=== PATIENT | male | born 1980 ===

== ENCOUNTER 2019-09-19 18:47 | Emergency (ER) | payer BC, OTHER ==
[2019-09-19 19:06] VITALS: BP 140/90
--- NOTE | 2019-09-19 19:13 | UC ---
Skin Complaint HPI - HPI Summary HPI Summary: 39-year-old male presents with 2 tick bites. States earlier this morning he discovered an embedded tick to his right lower abdomen and mid lower back. He removed them in their entirety right away. He is unsure how long they were attached and believes that they weren't engorged. Denies fever, chills, fatigue , rash, flulike symptoms, myalgias, joint pain or swelling. - History of Current Complaint Chief Complaint: UCBiteInjury Time Seen by Provider: 09/19/19 19:00 Stated Complaint: TICK BITE Hx Obtained From: Patient Pain Intensity: 0 - Allergy/Home Medications Allergies/Adverse Reactions: Allergies Allergy/AdvReac Type Severity Reaction Status Date / Time No Known Allergies Allergy Verified 09/19/19 19:00 Home Medications: Home Medications NK [No Home Medications Reported] 09/19/19 [History Confirmed 09/19/19] PMH/Surg Hx/FS Hx/Imm Hx Previously Healthy: Yes - Denies significant PMH - Surgical History Surgical History: Yes Surgery Procedure, Year, and Place: deviated septum 2011 - Family History Known Family History: Positive: Non-Contributory - Social History Occupation: Employed Full-time Lives: With Family Alcohol Use: Weekly Substance Use Type: None Smoking Status (MU): Never Smoked Tobacco Review of Systems All Other Systems Reviewed And Are Negative: Yes Constitutional: Negative: Fever, Chills Skin: Positive: Other - See HPI. Negative: Rash Respiratory: Positive: Negative Cardiovascular: Positive: Negative Gastrointestinal: Positive: Negative Genitourinary: Positive: Negative Musculoskeletal: Negative: Arthralgia, Myalgia Neurological: Positive: Negative Is Patient Immunocompromised?: No Physical Exam - Summary Physical Exam Summary: GENERAL APPEARANCE: Well developed, well nourished, alert and cooperative, and appears to be in no acute distress. CARDIAC: Normal S1 and S2. No S3, S4 or murmurs. Rhythm is regular. There is no peripheral edema, cyanosis or pallor. Extremities are warm and well perfused. Capillary refill is less than 2 seconds. Peripheral pulses intact. LUNGS: Clear to auscultation without rales, rhonchi, wheezing or diminished breath sounds. ABDOMEN: Positive bowel sounds. Soft, nondistended, nontender. No guarding or rebound. No masses or hepatosplenomegally. MUSKULOSKELETAL: ROM intact to all extremities. No joint erythema or tenderness. Normal muscular development. Normal gait. SKIN: Skin normal color, texture and turgor. 2 small circular areas of erythema <1 cm in diameter to the right lower abdomen and mid lumbar back. Triage Information Reviewed: Yes Vital Signs: Initial Vital Signs Temp 99.0 F 09/19/19 19:00 Pulse 91 09/19/19 19:00 Resp 18 09/19/19 19:00 BP 167/105 09/19/19 19:00 Pulse Ox 96 09/19/19 19:00 Vital Signs Reviewed: Yes Course/Dx - Course Course Of Treatment: 39-year-old male presents with 2 tick bites. States earlier this morning he discovered an embedded tick to his right lower abdomen and mid lower back. He removed them in their entirety right away. He is unsure how long they were attached and believes that they weren't engorged. Denies fever, chills, fatigue , rash, flulike symptoms, myalgias, joint pain or swelling. Afebrile. Hypertensive otherwise vital signs stable. Patient had 2 small circular areas of erythema <1 cm in diameter to the right lower abdomen and mid lumbar back consistent with local reactions to the tick bites. Discussed with the patient that with the unknown time frame attachment and the fact that he believes that they ticks were engorged prophylactic treatment with doxycycline would be warranted. Reviewed the risks and benefits and patient is electing to treat. He is to follow-up with his primary care provider as needed. I reviewed the signs and symptoms of Lyme disease, provided anticipatory guidance, and warning symptoms to the patient. Verbalizes understanding and agrees with plan of care. - Differential Diagnoses - Skin Complaint Differential Diagnoses: Local Allergic Reaction, Tick Born Illness - Diagnoses Provider Diagnosis: Tick bite of abdomen, Tick bite of lower back Discharge ED - Sign-Out/Discharge Documenting (check all that apply): Patient Departure All imaging exams completed and their final reports reviewed: No Studies - Discharge Plan Condition: Stable Disposition: HOME Patient Education Materials: Tick Bite (ED) Referrals: No Primary Care Phys,NOPCP [Primary Care Provider] - Additional Instructions: Because there is a question of how long the ticks were attached and considering that they may have been engorged we will give you a one time dose of doxycycline 200 mg to help prevent the chance of Lyme disease. Ticks transmit infection only after they have attached and then taken a blood meal from their new host. A tick that has not attached cannot not pass any infection. Since the deer tick that transmits Lyme disease typically feeds for more than 36 hours before transmitting the organisim that causes Lyme disease, the risk of acquiring Lyme disease from an tick bite is extremely small, even in an area where the disease is common. There is no benefit of blood testing for Lyme disease at the time of the tick bite because even people who become infected will not have a positive blood test until approximately two to six weeks after the tick bite. To try to avoid getting bitten by a tick, you can: * Wear shoes, long-sleeved shirts, and long pants when you go outside. Keep ticks away from your skin by tucking your pants into your socks. * Wear light colors so you can spot any ticks that get on your clothes. * Wear bug spray or cream that contains DEET. (Do not use DEET on babies younger than 2 months.) On your clothes and gear, you can use bug repellents that have a chemical called "permethrin." * Shower within 2 hours of being outdoors if you think you have been in an area where there are ticks. * Put dry clothes briefly (for about 4 minutes) in a dryer after being outdoors. * Check your clothes and body for ticks after being outdoors. Be sure to check your scalp, waist, armpits, groin, and backs of your knees. Check your children , too. After a tick bite, you will need to monitor for signs of Lyme disease over the nexter several weeks even if you have been given antibiotics to prevent the infection. Seek immediate medical attention if you develop a bullseye rash, fever, flu-like symptoms including headache, stiff neck, fatigue, muscle aches, joint pain or swelling. Your blood pressure was elevated in the clinic today. It is recommended that you have this rechecked by your primary care provider within 4 weeks. - Billing Disposition and Condition Condition: STABLE Disposition: Home - Attestation Statements Provider Attestation: I was available for consult. This patient was seen by the JOCELYN. The patient was not presented to, seen by, or examined by me. -[email or web address]
[2019-09-19] MEDS ORDERED: DOXYcycline CAP(*) 100 MG PO ONE (19:19)
== END 2019-09-19 19:33 | disposition home or self-care (01) ==
LOC: UCEAST 18:47
DX: S30.861A Insect bite (nonvenomous) of abdominal wall, initial encounter (principal); S30.860A Insect bite (nonvenomous) of lower back and pelvis, initial encounter; W57.XXXA Bitten or stung by nonvenomous insect and other nonvenomous arthropods, initial encounter; Y92.9 Unspecified place or not applicable
CPT/HCPCS: 99202; A9270-GY; G0463